=== PATIENT | female | born 1935 | race Caucasian/White ===

== ENCOUNTER 2018-05-18 21:13 | Inpatient (IN) | payer MEDICARE ==
[~2018-05-18] VITALS: Ht 157.5 cm; Wt 59.0 kg
[2018-05-18 21:13] VITALS: BP 57/23
--- NOTE | 2018-05-18 21:13 | NUR ---
[facility], RT at bedside with vent, pt being bag ventilated by EMS. Pt noted with a trach. Pt transferred onto bed 7, placed onto court recording monitor, pulse oximetry and blood pressure monitoring.
[2018-05-18 21:15] VITALS: BP 57/23
--- NOTE | 2018-05-18 21:15 | NUR ---
PLACED PATIENT ON A [employer] R860 VENTILATOR PLUGGED INTO RED OUTLET WITH SETTINGS NOTED ON FLOWSHEET
--- NOTE | 2018-05-18 21:15 | NUR ---
[facility] REHAB FOR SOB STARTING AT 2030 TONIGHT WITH AN INCREASE RR OF 40 AND A DECREASE OXGYEN SATURATION IN THE LOW 90S AND WAS ON OXYGEN AT 4L AND BUMPED UP TO 15L. PT D/C FROM HOSPITAL 3 DAYS AGO FOR SEPSIS. -- PT HAS TRACHEOSTOMY AND IS ON VENTILATOR. PT IS TACHYPNIC. CHEST RISE EQUAL, SYMETRICAL. NO NASAL FLARING, GRUNTING, ACCESSORY MUSCLE USE. RT AT BEDSIDE. SX'D SMALL PALE YELLOW SEMI THICK SECRETIONS. SPO2 96% ON 40% FIO2. -- PT HAS G-TUBE. SOME DISTENTION NOTED. ABD FIRM. PT HAD YELLOW WATERY EMESIS X3. ERMD MADE AWARE. -- PT HAS NUNEZ CATH INSERTED WITH 100 ML KRISTAL URINE IN DRAIN BAG. -- SKIN CHECK PERFORMED. EXCORIATION NOTED TO THE PERINEAL AREA. OPEN AREA NOTED NEXT TO ANUS. PICTURE TAKEN. PMH: CHF, HTN, CAD, ASHTMA, HYPOTHYROID, GERD, HYPERLIPIDEMIA
--- NOTE | 2018-05-18 21:25 | NUR ---
SPUTUM CULTURE OBTAINED SMALL THIN PALE WHITE SECRETIONS AIRWAY PATENT
[2018-05-18] MEDS ORDERED: NACL 0.9% 1,000 ML IV ONE ×2 (21:40→22:55)
--- NOTE | 2018-05-18 21:50 | NUR ---
LAB AT BEDSIDE. BLOOD CX DRAWN X 2.
--- NOTE | 2018-05-18 21:56 | NUR ---
X-Ray at bedside.
[2018-05-18 22:11] LABS: BASOPHILS % (AUTO) 0.3 % (0.0-2.0); EOSINOPHILS % (AUTO) 0.1 % (0.0-4.0); HEMATOCRIT 26.1 % (36-48); HEMOGLOBIN 8.6 g/dL (12.0-16.0); LYMPHOCYTES # (AUTO) 1.6 K/uL (2.5-16.5); LYMPHOCYTES % (AUTO) 30.3 % (20.5-51.1); MEAN CORPUSCULAR HEMOGLOBIN 32 pg (27-31); MEAN CORPUSCULAR HGB CONC 33 g/dL (33-37); MEAN CORPUSCULAR VOLUME 95.6 fL (80-94); MONOCYTES # (AUTO) 0.2 K/uL (0.8-1.0); MONOCYTES % (AUTO) 3.1 % (1.7-9.3); NEUTROPHILS # (AUTO) 3.5 K/uL (1.8-7.7); NEUTROPHILS % (AUTO) 66.2 % (42.2-75.2); PLATELET COUNT (AUTO) 125 K/uL (140-450); RED BLOOD CELL COUNT(AUTO) 2.73 MIL/uL (4.20-5.40); RED CELL DISTRIBUTION WIDTH 16.1 % (11.6-13.7); WHITE BLOOD COUNT (AUTO) 5.2 K/uL (4.8-10.8)
--- NOTE | 2018-05-18 22:38 | NUR ---
Original villatoro d/c'd. # 16 FR Villatoro catheter with 10 ml utilizing sterile technique. Immediate return of 15 ml tam urine noted. Bedside drainage bag placed below level of bladder. Waiting for greater volume for lab specimen. Pt tolerated procedure well.
[2018-05-18 22:43] LABS: ALBUMIN 1.6 g/dL (3.4-5.0); ASPARTATE AMINOTRANSFERASE 62 U/L (15-37); CARBON DIOXIDE 34.1 mmol/L (21-32); CHLORIDE 94 mmol/L (98-107); CREATININE 1.3 mg/dL (0.6-1.3); GLUCOSE 103 mg/dL (74-106); SODIUM SERUM 132 mmol/L (136-145); TOTAL BILIRUBIN 0.6 mg/dL (0.0-1.0)
[2018-05-18 22:55] LABS: POTASSIUM 6.1 mmol/L (3.5-5.1); UREA NITROGEN, BLOOD 105 mg/dL (7-18)
[2018-05-18] MEDS ORDERED: DONE5TAB6 GT (23:24)
[2018-05-18] MEDS ORDERED: INSU100S10 SC (23:24)
[2018-05-18] MEDS ORDERED: FOLI1TAB90 GT (23:24)
[2018-05-18] MEDS ORDERED: AMIO200T59 GT (23:24)
[2018-05-18] MEDS ORDERED: DIGO0.122 PO (23:24)
[2018-05-18] MEDS ORDERED: MAGN400S60 GT (23:24)
[2018-05-18] MEDS ORDERED: WARF-18 GT (23:24)
[2018-05-18] MEDS ORDERED: ACET-2214 GT (23:24)
[2018-05-18] MEDS ORDERED: BISA-213 RC (23:24)
[2018-05-18] MEDS ORDERED: PRED10TA5 GT (23:24)
[2018-05-18] MEDS ORDERED: OMEP1PAC GT (23:24)
[2018-05-18] MEDS ORDERED: FURO-570 GT (23:24)
[2018-05-18] MEDS ORDERED: SENN-74 GT (23:24)
[2018-05-18] MEDS ORDERED: VITD1000 GT (23:24)
[2018-05-18] MEDS ORDERED: METO25TA GT (23:24)
[2018-05-18] MEDS ORDERED: ACET-7756 GT (23:24)
[2018-05-18] MEDS ORDERED: ATOR40TA GT (23:24)
[2018-05-18] MEDS ORDERED: IPRA3AMP2 IH (23:24)
[2018-05-18] MEDS ORDERED: SYN.05 GT (23:24)
[2018-05-18] MEDS ORDERED: DEXT1DRO5 OP (23:24)
[2018-05-18] MEDS ORDERED: ALUM355S50 GT (23:24)
[2018-05-18] MEDS ORDERED: PHENYLEPHRINE 10 MG in NACL 0.9% 250 ML IV ONE (23:40)
--- NOTE | 2018-05-18 23:44 | NUR ---
IV to left arm infiltrated, site noted with erythema, cool to touch, IV removed, catheter intact, 2x2 placed, secured with tape.
--- NOTE | 2018-05-18 23:46 | NUR ---
Dr. Mirza at bedside and will place a central line.
[2018-05-18 23:56] VITALS: BP 58/29
[2018-05-19] VITALS (18 sets, daily range): BP systolic 71–99; BP diastolic 22–42
[2018-05-19] MEDS ORDERED: PHENYLEPHRINE 10 MG/ML VIAL ONE (00:02)
--- NOTE | 2018-05-19 00:25 | NUR ---
TRANSFERRED TO RADIOLOGY FOR CT SCAN OF CHEST/ABDOMINAL REMOVED FOR VENTILATOR PLACED ON SUPPLEMENTAL AT 15 LPM VIA E-TANK TO AMBU BAG BAG DEPRESSION EVERY 6-9 SECONDS TOLERATED TRANSFER WELL WITHOUT ADVERSE REACTIONS NOTED SATURATION 97%
--- NOTE | 2018-05-19 00:33 | NUR ---
PT LEFT FOR CT WITH RN, RT.
[2018-05-19] MEDS ORDERED: ACETAMINOPHEN 325 MG TAB PO PRN (00:35)
[2018-05-19] MEDS ORDERED: ONDANSETRON 4 MG/2 ML VIAL IM/IVP PRN (00:35)
[2018-05-19] MEDS ORDERED: DOCUSATE SODIUM 100 MG GELCAP PO PRN (00:35)
[2018-05-19] MEDS ORDERED: MORPHINE SULFATE 2 MG/ML SYR IVP PRN ×2 (00:35→02:10)
[2018-05-19] MEDS ORDERED: HYDROcodone/APAP 7.5/325 MG 1 TAB PO PRN (00:35)
--- NOTE | 2018-05-19 00:39 | NUR ---
TRANSFERRED BACK TO ER-7 TOLERATED TRANSFER WELL WITHOUT ADVERSE REACTIONS BAG DEPRESSION EVERY 6-8 SECONDS WITH SUPPLEMENTAL OXYGEN VIA E-TANK AT 15 PM
[2018-05-19] MEDS ORDERED: ALBUTEROL SULFATE/IPRATROPIU 3 ML SOL IH PRN (00:40)
[2018-05-19 00:52] LABS: PROTHROMBIN TIME 30.8 secs (10.8-13.4)
[2018-05-19] MEDS ORDERED: NOREPINEPHRINE 16 MG in DEXTROSE 5% 250 ML IV PRN (00:55)
--- NOTE | 2018-05-19 00:55 | NUR ---
TRANSFERRED TO ICU-8 BAG DEPRESSION EVERY 6-8 SECONDS WITH SUPPLEMENTAL OXYGEN VIA E-TANK AT 15 LPM SATURATION 96% TOLERATED TRANSFER WELL WITHOUT ADVERSE REACTIONS NOTED
[2018-05-19 01:04] LABS: CHOL/HDL RATIO 1.7 (1-4.5); MAGNESIUM 2.6 mg/dL (1.8-2.4); PHOSPHORUS 4.6 mg/dL (2.5-4.9); THYROID STIMULATING HORMONE 4.9 uIU/mL (0.34-3.74)
--- NOTE | 2018-05-19 01:05 | NUR ---
Pt transferred to ICU bed 8 accompanied by RT, RODRICK Guerrero and Dimitris EMT. Pt admitted to Dr. Romeo.
[2018-05-19] MEDS ORDERED: NACL 0.9% 2,000 ML IV ONE (01:10)
--- NOTE | 2018-05-19 01:10 | NUR ---
PLACED BACK ON VENTILATOR WITH SAME SETTINGS NOTE ON FLOW SHEET
--- NOTE | 2018-05-19 01:10 | NUR ---
RECEIVED PT FROM ER VIA CASIE. PT AWAKE, ABLE TO FOLLOW SIMPLE COMMANDS, PT NODS WHEN ASK SIMPLE QUESTIONS. ATTACHED TO SLAT BASKET TOP MAKER, PULSE OXIMETER. IV ACCESS RIGHT HAND 22 GAUGE, PATENT, INTACT. TRACH TO VENT FIO2 40% TV 400 AC [address] GT IN PL[address]. NUNEZ CATH IN PLACE. BED IN LOW POSITION. SAFETY MEASURE ENSURE. WILL CONTINUE TO MONITOR. DR. CAPPS IN THE UNIT.
[2018-05-19] MEDS ORDERED: NOREPINEPHRINE 4 MG/4 ML VIAL IV ONE (01:21)
--- NOTE | 2018-05-19 01:30 | NUR ---
DR LEATHA CAPPS AWARE OF POTASSIUM LEVEL 5.8. NO ORDERS MADE AT THIS TIME.
[2018-05-19 01:38] LABS: ANION GAP 12.6 (8-16); CARBON DIOXIDE 29.2 mmol/L (21-32); CHLORIDE 99 mmol/L (98-107); CREATININE 1.3 mg/dL (0.6-1.3); GLUCOSE 89 mg/dL (74-106); POTASSIUM 5.8 mmol/L (3.5-5.1); SODIUM SERUM 135 mmol/L (136-145)
[2018-05-19 01:49] LABS: UREA NITROGEN, BLOOD 99 mg/dL (7-18)
--- NOTE | 2018-05-19 01:55 | NUR ---
URINE SPECIMEN AND MRSA SWAB SENT TO LAB.
[2018-05-19] MEDS ORDERED: MORPHINE SULFATE 2 MG/ML SYR IVP SCH (02:15)
[2018-05-19] MEDS ORDERED: Z-GUARD PASTE TP PRN ×2 (02:25→07:23)
[2018-05-19] MEDS ORDERED: PIPERACILLIN/TAZOBACTAM 3.375 GM VIAL IV ONE (02:35)
[2018-05-19] MEDS: DEXT 5% /NACL 0.9% 1,000 ML IV SCH ×3 (02:57→22:09)
[2018-05-19] MEDS ORDERED: PIPER/TAZO 3.375GM/D5W PREMIX 50 ML IV SCH ×2 (03:00→13:00)
[2018-05-19 03:03] LABS: APPEARANCE,URINE CLOUDY (CLEAR); BILIRUBIN,URINE 2+ (NEGATIVE); BLOOD, URINE NEGATIVE (NEGATIVE); COLOR,URINE DARK YELLOW (YELLOW); LEUKOCYTE ESTERASE ,URINE TRACE (NEGATIVE); NITRITE, URINE NEGATIVE (NEGATIVE); PH,URINE 5.5 (5.0-9.0); UGLUCOSE TRACE (NEGATIVE)
--- NOTE | 2018-05-19 05:23 | NUR ---
RESTING WELL GOOD CHEST RISE DEEP TRACHEAL SUCTION FOR LARGE THICK PALE YELLOW SECRETIONS AIRWAY PATENT
--- NOTE | 2018-05-19 05:26 | NUR ---
SPOKE WITH RODRICK BOYLE AT [facility]. PNA SHOT 05/15/18, FLU VACCINE 10/22/2017
--- NOTE | 2018-05-19 05:30 | NUR ---
PT HAD LARGE AMOUNT OF BROWN BM.
[2018-05-19] MEDS ORDERED: MORPHINE SULFATE 4 MG/ML SYR IVP PRN (05:45)
[2018-05-19 06:05] LABS: CARBON DIOXIDE 29.6 mmol/L (21-32); CHLORIDE 103 mmol/L (98-107); CREATININE 1.2 mg/dL (0.6-1.3); GLUCOSE 71 mg/dL (74-106); POTASSIUM 5.6 mmol/L (3.5-5.1); SODIUM SERUM 138 mmol/L (136-145)
[2018-05-19 06:09] LABS: RBC,URINE 0-5 /HPF (0-5); WBC,URINE 0-5 /HPF (0-5); YEAST,URINE Moderate /HPF (None Seen)
[2018-05-19 06:12] LABS: HYALINE CASTS, URINE 0-10 /LPF (None Seen)
[2018-05-19 06:22] LABS: UREA NITROGEN, BLOOD 96 mg/dL (7-18)
--- NOTE | 2018-05-19 06:29 | NUR ---
REC'D PT ON [employer] VENT SETTINGS AC 18 VT 400 PEEP 5 FIO2 50% ALARMS ON AND AUDIBLE AND AMBU BAG AT HOB I\L TX GIVEN WITH DUONEB 3MLWITH NO ADVERSE REACTION POST TX B\S ARE RHONCHI BILATERALLY SXN PT SMALL AMT OF WHITE SECRETIONS, PT IS TRACH WITH SHILEY 8 AND SKIN INTEGRITY IS INTACT, PT IS SLEEPING WITH NO SIGNS OF DISTRESS NOTED AT THIS TIME
[2018-05-19] MEDS ORDERED: LEVOTHYROXINE 0.05 MG TAB GT SCH (06:30)
[2018-05-19] MEDS ORDERED: PANTOPRAZOLE 40 MG INJ VIAL IVP SCH (06:30)
[2018-05-19 06:34] LABS: MAGNESIUM 2.7 mg/dL (1.8-2.4)
[2018-05-19 06:58] LABS: BASOPHILS % (AUTO) 0.1 % (0.0-2.0); EOSINOPHILS % (AUTO) 0.1 % (0.0-4.0); HEMATOCRIT 23.2 % (36-48); HEMOGLOBIN 7.8 g/dL (12.0-16.0); LYMPHOCYTES # (AUTO) 0.9 K/uL (2.5-16.5); LYMPHOCYTES % (AUTO) 20.4 % (20.5-51.1); MEAN CORPUSCULAR HEMOGLOBIN 32 pg (27-31); MEAN CORPUSCULAR HGB CONC 34 g/dL (33-37); MEAN CORPUSCULAR VOLUME 95.3 fL (80-94); MONOCYTES # (AUTO) 0.1 K/uL (0.8-1.0); MONOCYTES % (AUTO) 2.6 % (1.7-9.3); NEUTROPHILS # (AUTO) 3.2 K/uL (1.8-7.7); NEUTROPHILS % (AUTO) 76.8 % (42.2-75.2); PLATELET COUNT (AUTO) 95 K/uL (140-450); RED BLOOD CELL COUNT(AUTO) 2.43 MIL/uL (4.20-5.40); RED CELL DISTRIBUTION WIDTH 15.9 % (11.6-13.7); WHITE BLOOD COUNT (AUTO) 4.2 K/uL (4.8-10.8)
[2018-05-19] MEDS ORDERED: ALBUTEROL SULFATE/IPRATROPIU 3 ML SOL IH SCH (07:00)
--- NOTE | 2018-05-19 07:19 | NUR ---
RECEIVED BEDSIDE REPORT FROM OIL GAS AND PIPE TESTER RN, SARWAT, FOR CONTINUITY OF CARE. PATIENT AAOX2, ABLE TO FOLLOW SIMPLE COMMANDS. SKIN IS WARM, DRY, AND INTACT. PATIENT HAS PERIPHERAL IV SITE TO R. HAND, 22 GAUGE AND R. FOREARM, 22 GAUGE, BOTH ASYMPTOMATIC AND PATENT. SHE IS TRACH TO VENT, SETTINGS ARE FIO2 50, AC 15, PEEP 5, TV 400. BREATHING IS EVEN AND LABORED, PATIENT IS TACHYPNEIC. NUNEZ CATHETER IN PLACE TO KRISTAL URINE. HOB IS 30 DEGREES, SAFETY PRECAUTIONS AND ALARMS ASSESSED AND IN PLACE. NO SIGNS OF DISTRESS AT THIS TIME. WILL CONTINUE TO MONITOR
--- NOTE | 2018-05-19 07:30 | NUR ---
REPORT GIVEN TO AM SHIFT RN. PT IN STABLE CONDITION.
--- NOTE | 2018-05-19 08:01 | NUR ---
DR. ORNELAS AND RESIDENT PHYSICIANS AT BEDSIDE TO SEE PATIENT. WILL FOLLOW UP ON ANY ORDERS.
--- NOTE | 2018-05-19 08:12 | NUR ---
PATIENT HAS BEEN SCREENED AND CATEGORIZED HIGH NUTRITION RISK. PATIENT WILL BE SEEN WITHIN 1-2 DAYS OF ADMISSION. 05/19/18-05/20/[address]
--- NOTE | 2018-05-19 08:31 | NUR ---
DR. SIERRA IN TO SEE AND EXAMINE PATIENT, UPDATED ON PATIENT'S CONDITION. WILL FOLLOW UP ON ANY ORDERS.
--- NOTE | 2018-05-19 10:03 | NUR ---
WOUND CONSULT PENDING AT THIS TIME, PT WITH LOW BP, DR. SAAVEDRA. AT ICU MADE AWARE.
--- NOTE | 2018-05-19 10:32 | NUR ---
SPOKE WITH PATIENT'S DAUGHTER, SHE PROVIDED DOCUMENTS STATING THAT PATIENT WOULD LIKE HER BODY DONATED TO [facility]. A COPY OF THE DOCUMENTS ARE IN THE CHART
--- NOTE | 2018-05-19 10:40 | NUR ---
PATIENT STARTED ON MORPHINE DRIP, WILL CONTINUE TO MONITOR.
[2018-05-19] MEDS: MORPHINE SULFATE 100 MG in NACL 0.9% 90 ML IV PRN (10:41)
--- NOTE | 2018-05-19 12:13 | NUR ---
Spoke with Swati DELEON from [place] and informed her that the pt is here in [facility] and has an order for hospice/palliative eval. Per Swati she will follow up on the condition of the pt tomorrow.
--- NOTE | 2018-05-19 12:53 | NUR ---
Spoke with Swati DELEON from [place], pt has [facility]. Per Swati family can choose any hospice care for home and SNF.
--- NOTE | 2018-05-19 13:38 | NUR ---
FNS SERVICES NO LONGER NEEDED, PLEASE CONTACT RD IF THERE ARE ANY CHANGES IN STATUS [address]NE [address]
--- NOTE | 2018-05-19 14:01 | NUR ---
WOUND CARE EVALUATION NOTE: REASON FOR EVALUATION: LOW FEDE SCALE AND BUTTOCK WOUNDS SKIN ASSESSMENT DONE WITH CHARGE NURSE ON THIS 82 Y/O FEMALE PT [facility] WITH INITIAL DX OF SOB. PT IS ON MORPHINE DRIPS AND PALLIATIVE CARE. LEFT DORSAL FEET 2X2CM BRUISES, SKIN INTACT. BILATERAL LOWER LEGS ARE COLD TO TOUCH. CLARIFICATION: NO PRESSURE INJURY TO RIGHT BUTTOCK. IAD TO RIGHT BUTTOCK WITH SKIN EROSION 1.5X1 CM AND SUPERFICIAL DEPTH. LEFT BUTTOCK REDNESS. BLANCHABLE REDNESS TO OCCIPITAL, RIGHT EAR, SACRALCOCCYX AND BILATERAL HEELS RECOMMENDATIONS: -KEEP SKIN DRY AND CLEAN AT ALL TIMES, PLEASE CHECK Q2H AND PRN FOR INCONTINENCY OF BOWEL -APPLY Z-GUARD TO RIGHT BUTTOCK BIDWC AND PRN IF SOILING -APPLY FORM DRESSING TO SACRALCOCCYX Q3 DAYS AND PRN IF SOILING -OFFLOAD BILATERAL HEELS BY PLACING PILLOWS UNDER CALVES UNLESS OTHERWISE CONTRAINDICATED -PRESSURE REDISTRIBUTION SURFACE THERAPY -TURN AND REPOSITION Q2H, OFFLOAD RIGHT AND LEFT HIPS -CONTINUE TO FOLLOW RD RECOMMENDATIONS ALL ABOVE RECOMMENDATIONS DISCUSSED WITH PRIMARY RN PLEASE CONTACT WOUND CARE NURSE FOR ANY QUESTION AND CHANGE OF WOUND CONDITION.
--- NOTE | 2018-05-19 16:13 | NUR ---
PATIENT'S DAUGHTER AT BEDSIDE.
--- NOTE | 2018-05-19 19:02 | NUR ---
RCV'D PT ON MECHANICAL VENTILATION. PT IS TRACHED WITH ADI8. TRACH IS IN PLACE AND SECURED. SETTINGS CHARTED. VENT IS CONNECTED TO RED OUTLET.ALARMS AUDIBLE. AMBU BAG AT BEDSIDE. NO SOB OR DISTRESS NOTED. WILL CONTINUE TO MONITOR.
--- NOTE | 2018-05-19 19:15 | NUR ---
RECEIVED BEDSIDE REPORT FROM MORNING SHIFT RN FOR CONTINUITY OF CARE. DNR STATUS NOTED, PT DOES NOT RESPOND TO COMMANDS, PERRL/SLUGGISH. TRACH TO VENT, SETTINGS IPX7=616%, VV=274, RR=18, FLOW=70L/MIN, PEEP=5. LUNG SOUND RHONCHI ON UPPER/LOWER BILATERAL LOBES. SR ON ELECTRONIC SCALE ASSEMBLER AND TESTER. TEMP= 99.4, RR=35, SATING 93% BOWEL SOUND ACTIVE, SMALL BOWEL MOVEMENT, BROWN/FORMED. NPO STATUS NOT NGT OR OGT IN PLACE. INCONTINENT DERMATITIS NOTED ON RIGHT BUTTOCKS. NUNEZ CATHER IN PLACE, URINE IS MINIMAL AND DARK KRISTAL/BROWN IN COLOR. RIGHT HAND 22 PIV INTACT/FLUSHED AND RFA 22 INFUSING D5NS AT 100CC/HR. MORPHINE INFUSING AT 6MG/HR AT THIS TIME. Addendum: 05/19/18 at 2048 by Bere Helton RN CORRECTION: FIO2=50%, GTUBE IN PLACE AT [facility].
--- NOTE | 2018-05-19 19:40 | NUR ---
MORPHINE INCREASED TO 8MG/HR AT THIS TIME, RR=35 RPM, HR 102.
--- NOTE | 2018-05-19 20:00 | NUR ---
PT HAD BOWEL MOVEMENT, SOFT/FORMED. SACRAL COCCYX DRESSING IS DRY/INTACT. SMALL OPEN WOUND ON RIGHT GLUTEUS/INCONTINENT DERMATITIS. SKIN PROTECTIVE BARRIER APPLIED AND PILLOW SUPPORT. PT REPOSITIONED, TOLERATED WELL.
--- NOTE | 2018-05-19 21:14 | NUR ---
FAMILY AT BEDSIDE TO SEE PATIENT.
--- NOTE | 2018-05-19 21:17 | NUR ---
VENT CHECK. PT HAD DRAINAGE FROM TRACH SITE. DAUGHTER DOES NOT HER MOM TO BE SUCTIONED DUE TO PT FEELING PAIN/COMFORT MEASURES. CHANGED GAUZE. RN AWARE. WILL CONTINUE TO MONITOR.
--- NOTE | 2018-05-19 21:38 | NUR ---
PROCEDURES RN AT BEDSIDE AT THIS TIME
--- NOTE | 2018-05-19 22:09 | NUR ---
FAMILY REQUESTS NON-YARSANI CNC MACHINE OPERATOR AT THIS TIME.
--- NOTE | 2018-05-19 22:22 | NUR ---
CALLED ELS[employer] JAIMES TO REQUEST FOR ON-CALL TECHNOLOGY SALES SPECIALIST AT THIS TIME. AWAITING TO HEAR BACK FOR NON-CONFUCIANIST TECHNOLOGY SALES SPECIALIST.
--- NOTE | 2018-05-19 22:27 | NUR ---
SPOKE TO PASTOR HARPER FOR NON-YAZIDI SERVICES. WILL BE AT [facility] IN 15-30 MINS.
--- NOTE | 2018-05-19 22:47 | NUR ---
CHAPLAIN TOM AT BEDSIDE AT THIS TIME WITH FAMILY.
[2018-05-20] VITALS: BP 79/34
[2018-05-20] MEDS: MORPHINE SULFATE 100 MG in NACL 0.9% 90 ML IV PRN (00:17)
[2018-05-20 01:11] VITALS: BP 76/32
--- NOTE | 2018-05-20 01:51 | NUR ---
RR= 6-10, MORPHINE DRIP AT 12MG/HR. SATING 91% BP74/31, REPOSITIONED AT THIS TIME.
--- NOTE | 2018-05-20 03:20 | NUR ---
CALLED DAUGHTER KANCHAN, OF PT DECLINING STATUS. DAUGHTER STATED SHE DOES NOT NEED/WANT TO BE PRESENT AT BEDSIDE. WOULD LIKE FOR STAFF TO FOLLOW-UP IN THE MORNING AFTER ARRANGEMENT/FOR BODY SIGN BUILDER.
[2018-05-20 03:25] VITALS: BP 59/29
--- NOTE | 2018-05-20 03:37 | NUR ---
DR. CAPPS AT BEDSIDE, TIME OF FOR PATIENT NOTED AT 0335.
--- NOTE | 2018-05-20 03:45 | NUR ---
CALLED [facility] OFFICE AT [phone], SPOKE WITH ANA. WILL CALL BACK.
--- NOTE | 2018-05-20 03:47 | NUR ---
SPOKE WITH [facility]. [facility] AWAITING INSPECTOR [employer]'S RELEASE AT THIS TIME.
--- NOTE | 2018-05-20 04:00 | NUR ---
PT . VENTILATOR TURNED OFF.
--- NOTE | 2018-05-20 04:09 | NUR ---
RECEIVED CALL BACK FROM PIECE DYE WORKER, ELSA EAST, BODY HAS BEEN RELEASED, CASE # [id number].
--- NOTE | 2018-05-20 04:33 | NUR ---
SPOKE TO [facility] [employer] SCIENCE PROGRAM POWER BRAKE REBUILDER. INFORMED OF EXPIRATION AND PTS WISHES TO BE DONATED. AWAITING CALL FROM INFRASTRUCTURE SOFTWARE ENGINEER AT THIS TIME FOR REPORT AND DISPATCH.
--- NOTE | 2018-05-20 04:51 | NUR ---
GAVE REPORT TO FRAN FOR [facility] [employer] FOR SCIENCE PROGRAM. WILL BE SENDING DISPATCH TO [place] WHEN TRAFFIC DIES DOWN.
--- NOTE | 2018-05-20 06:59 | NUR ---
CALLED KANCHAN SALINAS, RECEIVED TELEPHONE CONSENT THAT IT IS OKAY FOR [facility] WILL DENT REMOVER PATIENT BODY.
--- NOTE | 2018-05-20 07:41 | NUR ---
PT TAKEN BY FROM [facility] [employer] PRO[employer].
[2018-05-22] MEDS ORDERED: FOAM DRESSING TP SCH (13:00)
== END 2018-05-20 03:35 | disposition expired | DRG 871 ==
LOC: MED 21:13 → MIC 05-19 00:33
PROVIDERS: ADMIT General Practice; ATTEND General Practice
PROC: 5A1935Z Respiratory Ventilation, Less than 24 Consecutive Hours (ICD-10-PCS; principal; 2018-05-18)
DX: A41.9 Sepsis, unspecified organism (principal); J69.0 Pneumonitis due to inhalation of food and vomit; R65.21 Severe sepsis with septic shock; E43 Unspecified severe protein-calorie malnutrition; J96.21 Acute and chronic respiratory failure with hypoxia; K57.92 Diverticulitis of intestine, part unspecified, without perforation or abscess without bleeding; E87.1 Hypo-osmolality and hyponatremia; N17.9 Acute kidney failure, unspecified; Z99.11 Dependence on respirator [ventilator] status; Z68.23 Body mass index [BMI] 23.0-23.9, adult; F03.90 Unspecified dementia, unspecified severity, without behavioral disturbance, psychotic disturbance, mood disturbance, and anxiety; I10 Essential (primary) hypertension; I48.91 Unspecified atrial fibrillation; D64.9 Anemia, unspecified; E87.5 Hyperkalemia; E83.41 Hypermagnesemia; I46.9 Cardiac arrest, cause unspecified; G89.29 Other chronic pain; J45.909 Unspecified asthma, uncomplicated; E03.9 Hypothyroidism, unspecified; E78.5 Hyperlipidemia, unspecified; I35.0 Nonrheumatic aortic (valve) stenosis; K21.9 Gastro-esophageal reflux disease without esophagitis; M32.9 Systemic lupus erythematosus, unspecified; I71.9 Aortic aneurysm of unspecified site, without rupture; Z90.49 Acquired absence of other specified parts of digestive tract; Z86.711 Personal history of pulmonary embolism; Z98.49 Cataract extraction status, unspecified eye; Z87.891 Personal history of nicotine dependence; Z66 Do not resuscitate; Z79.01 Long term (current) use of anticoagulants; Z85.71 Personal history of Hodgkin lymphoma; Z82.49 Family history of ischemic heart disease and other diseases of the circulatory system
CPT/HCPCS: 36415; 71045; 80048; 80053; 81001; 82150; 82550; 83036; 83605; 83690; 83735; 83880; 84100; 84443; 84484; 85025; 85610; 85730; 87040; 87070; 87081; 87086; 87186; 87205; 89220; 93005; 94003; 94640; 96360; 99285; J2270; J2370; J2543; J3490; J7030; J7042; J7060; J7620; Q0092